=== PATIENT | female | born 1985 | race Caucasian/White ===

== ENCOUNTER 2017-02-18 12:32 | Emergency (ER) | payer SELFPAY ==
[2017-02-18] MEDS ORDERED: Ketorolac Tromethamine 30 MG/ML VIAL ONE (12:59)
== END 2017-02-18 13:29 | disposition home or self-care (01) ==
LOC: ERS 12:32
DX: S02.5XXA Fracture of tooth (traumatic), initial encounter for closed fracture (principal); K50.90 Crohn's disease, unspecified, without complications; F17.210 Nicotine dependence, cigarettes, uncomplicated; X50.1XXA Overexertion from prolonged static or awkward postures, initial encounter
CPT/HCPCS: 96372; J1885

== ENCOUNTER 2017-02-26 20:46 | Emergency (ER) | payer SELFPAY ==
[2017-02-26 21:38] LABS: Bilirubin Negative (Negative); Blood, Urine Negative (Negative); Glucose, Urine (Dipstick) Negative (Negative); Ketone, Urine Negative (Negative); Nitrite Negative (Negative); Protein, Urine (Dipstick) Negative (Neg-Trace); Urobilinogen 0.2 mg/dL (0.2-1.0)
[2017-02-26] MEDS ORDERED: Acetaminophen 500 MG TAB ONE (21:50)
[2017-02-26] MEDS ORDERED: Ketorolac Tromethamine 30 MG/ML VIAL ONE (21:50)
[2017-02-26 22:26] LABS: #Basophils 0.1 thou/uL (0.0-0.2); #Eosinphils 0.6 thou/uL (0.0-0.7); #Lymphocytes 4.2 thou/uL (1.20-3.40); #Monocytes 0.7 thou/uL (0.11-0.59); #Neutrophils 6.3 thou/uL (1.40-6.50); %Basophils 0.7 % (0.0-1.0); %Eosinophils 5.5 % (0.0-10.0); %Lymphocytes 34.9 % (21.0-51.0); %Monocytes 6.3 % (0.0-10.0); Hematocrit 39.2 % (36.0-47.0); Mean Platelet Volume 7.4 fL (7.4-10.4); White Blood Cell (WBC) Count 11.9 thou/uL (4.8-10.8)
[2017-02-26 22:41] LABS: ALT (SGPT) 47 U/L (8-55); AST (SGOT) 24 U/L (5-34); Alkaline Phosphatase 108 U/L (40-150); Anion Gap 10 mmol/L (10-20); BUN (Urea Nitrogen) 13 mg/dL (7.0-18.7); Bilirubin, Total 1.2 mg/dL (0.2-1.2); Calc. Creatinine Clearance 0 mL/min (70-130); Calcium 9.4 mg/dL (7.8-10.44); Carbon Dioxide 27 mmol/L (22-29); Chloride 106 mmol/L (98-107); Estimated GFR-MDRD 90; Globulin 2.9 g/dL (2.4-3.5); Lipase 20 U/L (8-78); Protein, Total 7.1 g/dL (6.0-8.3)
[2017-02-26] MEDS ORDERED: HYDROmorphone 0.5 MG/0.5 ML SYRINGE ONE (23:08)
--- NOTE | 2017-02-26 23:22 | CT ---
CT OF THE ABDOMEN AND PELVIS WITH IV CONTRAST 02/26/17 INDICATION: Left lower quadrant abdominal pain. FINDINGS: The lung bases are clear. No focal hepatic lesion is evident. The gallbladder is surgically absent. The pancreas, adrenal glands, and kidneys are normal appearing. The spleen is upper limits of normal in size measuring 12.9 cm in its greatest AP dimension. No free fluid or enlarged lymph nodes are evident. There is normal appendix in the right lower quadra nt. There are a few scattered diverticula involving the colon without evidence of active diverticulit is. The uterus is not demonstrated and may be surgically absent. No acute osseous abnormalities are evident. IMPRESSION: No CT explanation for the patient's abdominal pain. POS: [facility]
== END 2017-02-26 23:25 | disposition home or self-care (01) ==
LOC: ERS 20:46
DX: R10.32 Left lower quadrant pain (principal); R20.8 Other disturbances of skin sensation; F17.210 Nicotine dependence, cigarettes, uncomplicated; K50.90 Crohn's disease, unspecified, without complications
CPT/HCPCS: 74177; 80053; 81003; 83690; 85025; 96374; 96375; 99406; J1170; J1885

== ENCOUNTER 2017-04-08 11:31 | Emergency (ER) | payer SELFPAY ==
[2017-04-08] MEDS ORDERED: Ondansetron HCl/PF 4 MG/2 ML Vial ONE (12:01)
[2017-04-08 12:06] LABS: #Eosinphils 0.1 thou/uL (0.0-0.7); #Lymphocytes 1.9 thou/uL (1.20-3.40); #Monocytes 0.6 thou/uL (0.11-0.59); #Neutrophils 11.5 thou/uL (1.40-6.50); %Basophils 0.3 % (0.0-1.0); %Eosinophils 0.6 % (0.0-10.0); %Lymphocytes 13.6 % (21.0-51.0); %Neutrophils 81.5 % (42.0-75.0); Hemoglobin 16.2 g/dL (12.0-16.0); Mean Corpuscular HGB CONC 34.8 g/dL (32.0-36.0); Mean Corpuscular Hemoglobin 31.3 pg (27.0-31.0); Mean Platelet Volume 7.1 fL (7.4-10.4); Platelet Count 407 thou/uL (130-400); RBC Distribution Width 13.2 % (11.5-14.5); Red Blood Cell (RBC) Count 5.19 mill/uL (4.20-5.40); White Blood Cell (WBC) Count 14.2 thou/uL (4.8-10.8)
[2017-04-08 12:28] LABS: ALT (SGPT) 21 U/L (8-55); AST (SGOT) 18 U/L (5-34); Albumin 5.1 g/dL (3.5-5.0); Alkaline Phosphatase 91 U/L (40-150); Anion Gap 17 mmol/L (10-20); BUN (Urea Nitrogen) 12 mg/dL (7.0-18.7); Bilirubin, Total 1.9 mg/dL (0.2-1.2); Calc. Creatinine Clearance 0 mL/min (70-130); Calcium 10.1 mg/dL (7.8-10.44); Carbon Dioxide 21 mmol/L (22-29); Chloride 108 mmol/L (98-107); Estimated GFR-MDRD 87; Globulin 3.1 g/dL (2.4-3.5); Glucose 92 mg/dL (70-105); Potassium 4.2 mmol/L (3.5-5.1); Protein, Total 8.2 g/dL (6.0-8.3); Sodium 142 mmol/L (136-145)
[2017-04-08] MEDS ORDERED: Promethazine HCl 25 MG/ML VIAL ONE (14:03)
[2017-04-08] MEDS ORDERED: Promethazine HCl 12.5 MG in Sodium Chloride 0.9% 50 ML IVPB ONE (14:15)
[2017-04-08] MEDS ORDERED: Promethazine HCl 25 MG/ML VIAL SLOW IVP SCH (14:30)
[2017-04-08] MEDS ORDERED: Haloperidol Lactate 5 MG/ML VIAL ONE (15:30)
[2017-04-08 15:42] LABS: Acetaminophen Less than 6.0 mcg/mL (10.0-30.0); Alcohol 26 mg/dL (Less than 10); Salicylate Less than 8.0 mg/dL (15.0-30.0)
[2017-04-08 16:04] LABS: Bilirubin Negative (Negative); Blood, Urine Negative (Negative); Clarity CLEAR (Clear); Glucose, Urine (Dipstick) Negative (Negative); Leukocyte Negative (Negative); Nitrite Negative (Negative); Protein, Urine (Dipstick) Negative (Neg-Trace); Specific Gravity, Urine 1.021 (1.002-1.036); Urobilinogen 0.2 mg/dL (0.2-1.0); pH, Urine 5.5 (5.0-9.0)
[2017-04-08 16:17] LABS: Medtox Reader # READER 1
[2017-04-08 16:18] LABS: Amphetamine Not Detected (NotDetected); Barbiturates Screen Not Detected (NotDetected); Benzodiazepine Screen Detected (NotDetected); Cocaine Metabolite Screen Not Detected (NotDetected); Medtox Control Line Valid? VALID (VALID); Methadone Not Detected (NotDetected); Methamphetamine Not Detected (NotDetected); Opiate Screen Not Detected (NotDetected); Oxycodone Screen Not Detected (NotDetected); Phencyclidine (PCP) Not Detected (NotDetected); THC/Cannabinoid Screen Detected (NotDetected); Tricyclic Screen Not Detected (NotDetected)
[2017-04-08] MEDS ORDERED: Ketorolac Tromethamine 60 MG/2 ML VIAL ONE (16:56)
== END 2017-04-08 17:04 | disposition home or self-care (01) ==
LOC: ERS 11:31
DX: F12.929 Cannabis use, unspecified with intoxication, unspecified (principal); R11.10 Vomiting, unspecified; K50.90 Crohn's disease, unspecified, without complications; F17.210 Nicotine dependence, cigarettes, uncomplicated; Z85.41 Personal history of malignant neoplasm of cervix uteri; Z71.6 Tobacco abuse counseling
CPT/HCPCS: 51701; 80053; 80306; 80307; 81003; 85025; 96361; 96374; 96375; 99406; A4353; J1630; J1885; J2405; J2550; J7050

== ENCOUNTER 2018-01-19 03:40 | Inpatient (IN) | payer SELFPAY ==
[2018-01-19] MEDS ORDERED: Ondansetron PF 4 MG/2 ML Vial ONE ×2 (03:49→04:31)
[2018-01-19 04:02] LABS: #Basophils 0.1 thou/uL (0.0-0.2); #Eosinphils 0.5 thou/uL (0.0-0.7); #Lymphocytes 2.9 thou/uL (1.20-3.40); #Monocytes 0.9 thou/uL (0.11-0.59); %Basophils 0.9 % (0.0-1.0); %Eosinophils 3.3 % (0.0-10.0); %Lymphocytes 20.1 % (21.0-51.0); %Monocytes 6.3 % (0.0-10.0); %Neutrophils 69.4 % (42.0-75.0); Hemoglobin 15.1 g/dL (12.0-16.0); Mean Corpuscular HGB CONC 34.8 g/dL (32.0-36.0); Mean Corpuscular Volume 89.2 fL (78.0-98.0); Mean Platelet Volume 7.3 fL (7.4-10.4); Platelet Count 318 thou/uL (130-400); RBC Distribution Width 12.8 % (11.5-14.5); Red Blood Cell (RBC) Count 4.87 mill/uL (4.20-5.40); White Blood Cell (WBC) Count 14.4 thou/uL (4.8-10.8)
[2018-01-19 04:22] LABS: ALT (SGPT) 15 U/L (8-55); AST (SGOT) 20 U/L (5-34); Albumin 4.5 g/dL (3.5-5.0); Alkaline Phosphatase 68 U/L (40-150); Anion Gap 15 mmol/L (10-20); BUN (Urea Nitrogen) 11 mg/dL (7.0-18.7); Calc. Creatinine Clearance 0 mL/min (70-130); Calcium 9.7 mg/dL (7.8-10.44); Carbon Dioxide 23 mmol/L (22-29); Chloride 107 mmol/L (98-107); Estimated GFR-MDRD 83; Globulin 2.6 g/dL (2.4-3.5); Glucose 98 mg/dL (70-105); Lipase 37 U/L (8-78); Potassium 4.3 mmol/L (3.5-5.1); Protein, Total 7.1 g/dL (6.0-8.3); Sodium 141 mmol/L (136-145)
[2018-01-19] MEDS ORDERED: Ketorolac Tromethamine 30 MG/ML VIAL ONE (04:31)
[2018-01-19] MEDS ORDERED: Promethazine HCl 25 MG/ML VIAL ONE (05:23)
[2018-01-19 05:39] LABS: Bilirubin Negative (Negative); Blood, Urine Negative (Negative); Clarity CLEAR (Clear); Glucose, Urine (Dipstick) Negative (Negative); Leukocyte Negative (Negative); Nitrite Negative (Negative); Protein, Urine (Dipstick) Negative (Neg-Trace); Specific Gravity, Urine 1.025 (1.002-1.036); Urobilinogen 0.2 mg/dL (0.2-1.0); pH, Urine 5.5 (5.0-9.0)
[2018-01-19] MEDS ORDERED: metroNIDAZOLE 500 MG/100 ML BAG ONE (06:18)
--- NOTE | 2018-01-19 07:50 | CT ---
CT OF THE ABDOMEN AND PELVIS WITH IV CONTRAST: INDICATION: History of Crohn's disease and abdominal pain. COMPARISON: Prior exam dated 02/26/2017. FINDINGS: Lung bases are clear. The gallbladder is surgically absent. The spleen is upper limits of normal for size measuring 12.8 cm. There is a small subcentimeter cyst within the left mid kidney which is stable. No hydronephrosis is evident. The pancreas and adrenal glands are normal appearing. No free fluid or enlarged lymph nodes are evident. There is wall thickening with mucosal enhancement that has progressed from the prior exam involving t he distal ileum and terminal ileum. No drainable fluid collection is grossly evident. No definite b owel obstruction is noted. The bladder is decompressed. The rectum and perirectal soft tissues are unremarkable. The appendix is not definitely seen. No definite acute osseous abnormality is evident. IMPRESSION: 1. Wall thickening with mucosal enhancement involving the distal ileum and terminal ileum consistent with changes of inflammatory bowel disease. No definite drainable fluid collection is grossly evide nt. 2. Nonvisualization of the appendix. 3. Left renal cyst. 4. Cholecystectomy. 5. The spleen is upper limits of normal for size measuring 12.8 cm. POS: [facility]
[2018-01-19 09:06] LABS: Lactic Acid 1.8 mmol/L (0.5-2.2)
[2018-01-19] MEDS ORDERED: Acetaminophen 325 MG TAB PO PRN (11:26)
[2018-01-19] MEDS: Nicotine 14 MG PATCH TD PRN (12:10)
[2018-01-19] MEDS: Ondansetron PF 4 MG/2 ML Vial IVP PRN ×2 (12:10→16:13)
[2018-01-19] MEDS: Sodium Chloride 0.9% 1,000 ML IV SCH ×2 (12:11→15:47)
[2018-01-19 12:44] VITALS: BMI 24.9
[2018-01-19] MEDS: metroNIDAZOLE 500 MG in Premix Bag 1 BAG IVPB SCH ×2 (13:45→22:55)
--- NOTE | 2018-01-19 18:28 | CON ---
DATE OF CONSULTATION: 01/19/2018 REFERRING DOCTOR: Paz Pillai M.D. REASON FOR CONSULTATION: Abdominal pain, nausea, vomiting, and history of Crohn's disease from [facility]. HISTORY OF PRESENT ILLNESS: Karolina Fernando is a very pleasant 32-year-old female with abdom inal pain, nausea, vomiting and diarrhea over the last several days. The patient has longstanding hi story of Crohn's disease since 2004. This was diagnosed when she was lived in [place]. Apparently, she was on Solu-Medrol, Flagyl, and some antibiotics for a while and she got better. She has never t aken medicine on a regular basis. Her last colonoscopy was in 2009 when she was living in [place] this was done just before hysterectomy. The patient has not taken medicines over the last several years. She also has not seen a marketing operations coordinator for many years. The patient states that she has i ntermittent abdominal pain, nausea, and vomiting, and history of pain medicines to control it. She a lso uses marijuana to get some relief for abdominal pain. The patient was seen here, I believe in [id number] with abdominal pain. At that time, the pain was over the left lower quadrant. An abdomi nal CAT scan done revealed no colitis at that time. The patient on the CAT scan done today which rev eals inflammatory changes in the ileum and the ileocecal area. The colon appeared very healthy. Her abdominal pain has been going on for the last several weeks off and on, but the pain got intense for the last 3 days. The pain is actually burning over the lower abdomen. She has had nausea and vomit ing, and also has had diarrhea. She says she has a stool today. She has had no major bleeding, but . She also gives history of fever and chills off and on. There is no history of weight loss. She has no other relevant history. ALLERGIES: ZOSYN. SOCIAL HISTORY: The patient is a smoker. Smokes one half pack of cigarettes per day. Does not drin k alcohol. She smokes marijuana off and on. MEDICAL ILLNESSES: 1. Longstanding Crohn's disease, not on any medication. 2. History of cervical cancer, status post hysterectomy. 3. Cholecystectomy. MEDICATIONS AT HOME: None. REVIEW OF SYSTEMS: Constitutional: History of fever and chills off and on. No history of weight lo ss. Respiratory: No history of chronic cough, hemoptysis, dyspnea. Cardiovascular: No chest pain, no palpitation, no dyspnea on exertion, orthopnea or PND. Gastrointestinal: As in history of prese nt illness. Genitourinary: No dysuria or hematuria. Musculoskeletal, Endocrine, and Hematologic: Unremarkable. PHYSICAL EXAMINATION: GENERAL: Appears comfortable, in no distress. VITAL SIGNS: Temperature 97.7 degrees Fahrenheit, pulse 67, blood pressure 102/53. HEENT: Conjunctivae clear. NECK: Supple. No adenitis or thyromegaly noted. CARDIOVASCULAR: First and second heart sounds normal. LUNGS: Clear to auscultation. ABDOMEN: Soft. Abdomen is nondistended. Although she comes in with abdominal pain which is severe, the exam is actually very benign. Abdomen shows no rebound or guarding. EXTREMITIES: Reveal no edema. LABORATORY DATA: CBC shows WBC 14,400, hemoglobin 15.1, hematocrit 43.4, MCV 18.2, platelet count 21 8,000, polymorphs 69, lymphocytes 20, monocytes 6. Chemistry panel: Sodium 141, potassium 4.3, chlo ride 107, bicarbonate 23, BUN is 11, creatinine 0.80, glucose 98, calcium 9.7, bilirubin 2, AST 20, A LT 15, alkaline phosphatase 68, albumin 4.5, lipase 37. An abdominal CAT scan done shows ileoc ecal area and ileum. CLINICAL IMPRESSION: 1. A 32-year-old female with longstanding Crohn's disease, not on medications. She has not taken me dicine for many years. She comes in with abdominal cramping, nausea, vomiting, diarrhea. CAT scan d oes show some inflammatory changes in the colon. Based on the CAT scan findings of the symptoms, pos sible that she could have Crohn's disease versus nonspecific infectious ileitis. We have no accessor y of all medical records. She has never taken medicines for many years. 2. Status post cholecystectomy. 3. Status post hysterectomy. RECOMMENDATIONS: 1. Stool for ova and parasites, culture, C. difficile. 2. Continue antibiotics. 3. Start patient on Solu-Medrol 20 mg q.8 hours. At some point in time, may have to consider colono scopy.
[2018-01-19] MEDS: Famotidine 20 MG TAB PO SCH (20:20)
--- NOTE | 2018-01-19 21:41 | HP ---
PRIMARY CARE PHYSICIAN: None. The patient is planning to see [facility]. CHIEF COMPLAINT: Abdominal discomfort. HISTORY OF PRESENT ILLNESS: Patient is a 32-year-old female with Crohn's disease who presented to the emergency room by EMS with abdominal discomfort that woke her up from sleep. The pain was periumbilical, 10/10, without any aggravating or relieving factor. She had some nausea along with low grade fever and chills. She denies any melena, hematochezia, or hematemesis. She denies any recent GI followup for Crohn's disease. In the emergency room, initial vital signs showed temperature 98.9, respirations 20, pulse 63, blood pressure of 122/82 with O2 saturation of 99% on room air. She received morphine, ciprofloxacin, Flagyl, IV fluid and Toradol in the emergency room. She denies any recent antibiotic use. PAST MEDICAL HISTORY: 1. Crohn's disease. 2. History of cervical cancer, status post hysterectomy. PAST SURGICAL HISTORY: Cholecystectomy. ALLERGIES: The patient is allergic to ZOSYN. CURRENT HOME MEDICATIONS: Reviewed with the patient and none. SOCIAL HISTORY: Patient currently lives at home. Denies any alcohol use. Occasionally smokes cigarettes. Due to her abdominal discomfort, she uses cannabis occasionally. FAMILY HISTORY: Positive for inflammatory bowel disease. REVIEW OF SYSTEMS: The following complete review of systems was negative, unless otherwise mentioned in the HPI or below: Constitutional: Weight loss or gain, ability to conduct usual activities. Skin: Rash, itching. Eyes: Double vision, pain. ENT/Mouth: Nose bleeding, neck stiffness, pain, tenderness. Cardiovascular: Palpitations, dyspnea on exertion, orthopnea. Respiratory: Shortness of breath, wheezing, cough, hemoptysis, fever or night sweats. Gastrointestinal: Poor appetite, abdominal pain, heartburn, nausea, vomiting, constipation, or diarrhea. Genitourinary: Urgency, frequency, dysuria, nocturia. Musculoskeletal: Pain, swelling. Neurologic/Psychiatric: Anxiety, depression. Allergy/Immunologic: Skin rash, bleeding tendency. PHYSICAL EXAMINATION: VITAL SIGNS: As discussed above. GENERAL: A 32-year-old female in moderate distress due to abdominal discomfort. HEENT: Atraumatic, normocephalic. Sclerae are anicteric. Moist mucous membrane, no oral lesion. NECK: Supple, no JVD, no carotid bruit. LUNGS: Clear to auscultation bilaterally, no wheezing, rales or rhonchi. HEART: S1, S2 present. Regular rate and rhythm. No murmur, rubs, or gallops. ABDOMEN: Soft, nondistended. There is periumbilical tenderness, no rebound or guarding. Bowel sounds present. EXTREMITIES: No edema or calf tenderness. NEUROLOGIC: Grossly nonfocal, moves all four extremities. PSYCHIATRY: Alert, awake, oriented x3. SKIN: Warm and dry. LYMPH NODES: No palpable lymph nodes in the neck. PERIPHERAL VASCULAR: Radial pulses palpable bilaterally. MUSCULOSKELETAL: No joint swelling or tenderness. LABORATORY DATA AND IMAGING DATA: 1. WBC 14.4 with hemoglobin 15.1, hematocrit 43.4. Lactic acid 2.4, repeat lactic acid 1.8, total bilirubin 2.0. 2. Sodium, potassium, chloride and bicarbonate in normal range. BUN 11, creatinine 0.8. 3. CT scan of the abdomen and pelvis showed some inflammatory changes in the distal ileum. IMPRESSION: 1. Abdominal pain with abnormal CT scan. She meets SIRS criteria. Possibilities include inflammatory bowel disease flare versus acute gastroenteritis. 2. Dehydration with lactic acidosis. 3. Chronic kidney disease stage 2. 4. Tobacco dependence. 5. Cannabis abuse. 6. Abnormal LFTs probably secondary to #1. PLAN: The patient will be monitored on the medical floor. Stool workup will be sent. We will continue ciprofloxacin and Flagyl. We will consult Gastroenterology. We will discuss with Gastroenterology if steroids can be started. We will add H2 blockers. Plan of care was discussed with the patient in detail. She stated understanding. MTDD
[2018-01-19] MEDS: Ondansetron ODT 4 MG TAB PO PRN (22:55)
[2018-01-20] MEDS: Ondansetron PF 4 MG/2 ML Vial IVP PRN ×3 (04:58→20:12)
[2018-01-20 06:02] LABS: #Eosinphils 0.1 thou/uL (0.0-0.7); #Lymphocytes 1.1 thou/uL (1.20-3.40); #Monocytes 0.1 thou/uL (0.11-0.59); #Neutrophils 6.5 thou/uL (1.40-6.50); %Basophils 0.6 % (0.0-1.0); %Eosinophils 1.1 % (0.0-10.0); %Lymphocytes 14.2 % (21.0-51.0); %Monocytes 1.6 % (0.0-10.0); %Neutrophils 82.6 % (42.0-75.0); Hemoglobin 13.6 g/dL (12.0-16.0); Mean Corpuscular HGB CONC 34.5 g/dL (32.0-36.0); Mean Corpuscular Hemoglobin 31.4 pg (27.0-31.0); Mean Platelet Volume 7.7 fL (7.4-10.4); Platelet Count 262 thou/uL (130-400); RBC Distribution Width 12.7 % (11.5-14.5); Red Blood Cell (RBC) Count 4.32 mill/uL (4.20-5.40); White Blood Cell (WBC) Count 7.9 thou/uL (4.8-10.8)
[2018-01-20 06:24] LABS: ALT (SGPT) 16 U/L (8-55); AST (SGOT) 18 U/L (5-34); Albumin 4.2 g/dL (3.5-5.0); Alkaline Phosphatase 67 U/L (40-150); Anion Gap 10 mmol/L (10-20); BUN (Urea Nitrogen) 6 mg/dL (7.0-18.7); Bilirubin, Total 1.6 mg/dL (0.2-1.2); Calc. Creatinine Clearance 116 mL/min (70-130); Carbon Dioxide 22 mmol/L (22-29); Chloride 113 mmol/L (98-107); Estimated GFR-MDRD 88; Globulin 2.2 g/dL (2.4-3.5); Glucose 117 mg/dL (70-105); Protein, Total 6.4 g/dL (6.0-8.3); Sodium 141 mmol/L (136-145)
[2018-01-20] MEDS: metroNIDAZOLE 500 MG in Premix Bag 1 BAG IVPB SCH ×3 (06:39→22:22)
[2018-01-20 07:32] LABS: Magnesium 1.9 mg/dL (1.6-2.6); Phosphorus 2.3 mg/dL (2.3-4.7)
[2018-01-20] MEDS: Famotidine 20 MG TAB PO SCH ×2 (09:02→20:17)
[2018-01-20] MEDS: Saccharomyces boulardii 250 MG CAP PO SCH (09:02)
[2018-01-20] MEDS: Morphine 4 MG/ML VIAL SLOW IVP PRN ×4 (09:03→20:22)
[2018-01-20] MEDS: Sodium Chloride 0.9% 1,000 ML IV SCH (09:03)
--- NOTE | 2018-01-20 14:01 | PDOC.PN ---
- Subjective Encounter Start Date: 01/20/18 Encounter Start Time: 10:30 Patient seen and examined for IBD flare. Abd pain improving. No N/V. No overnight events - Objective Resuscitation Status: Resuscitation Status FULL:Full Resuscitation MAR Reviewed: Yes Vital Signs & Weight: Vital Signs (12 hours) Temp Pulse Resp BP Pulse Ox 01/20/18 11:48 97.9 F 56 L 18 125/79 97 01/20/18 07:33 98.0 F 50 L 16 117/76 96 01/20/18 05:39 97.3 F L 61 20 121/82 98 Weight Admit Weight 154 lb 5.177 oz Weight 154 lb 5.177 oz I&O: 01/19/18 01/20/18 01/21/18 06:59 06:59 06:59 Intake Total 2150 Balance 2150 Result Diagrams: 01/20/18 05:22 01/20/18 05:22 Phys Exam - Physical Examination Constitutional: NAD Respiratory: no wheezing, no rhonchi Cardiovascular: RRR, no rub Gastrointestinal: soft, positive bowel sounds mild gen tenderness, no rebound Musculoskeletal: no edema Neurological: moves all 4 limbs Dx/Plan - Plan DVT proph w/SCDs 1. Abdominal pain/SIRS due to Crohn's exacerbation Cont IV Cipro/Flagyl/Steroids Cont Clear liqd diet 2. Dehydration with lactic acidosis. Change IVF to 1/2 NS 3. Chronic kidney disease stage 2. 4. Tobacco dependence. Counselled 5. Cannabis abuse. Counselled 6. Abnormal LFTs - improving Microbiology 01/19/18 16:23 Stool Escherichia coli 0157 Culture - Final 01/19/18 16:23 Stool Campylobacter Antigen Assay - Final 01/19/18 16:23 Stool Shiga Toxin Test - Final 01/19/18 12:37 Stool Stool Lactoferrin - Final 01/19/18 12:37 Stool Shiga Toxin Test - Final 01/19/18 12:37 Stool C. difficile GDH Antigen & Toxins - Final 01/19/18 16:23 Stool Stool Culture - Preliminary 01/19/18 12:37 Stool Stool Culture - Preliminary Laboratory Tests 01/19/18 01/19/18 01/19/18 03:50 03:50 08:33 Lactic Acid 2.4 H 1.8 Total Bilirubin 2.0 H 01/20/18 05:22 Lactic Acid Total Bilirubin 1.6 H Review of Systems - Review of Systems Respiratory: negative: Cough, Dry, Shortness of Breath, Hemoptysis, SOB with Excertion, Pleuritic Pain, Sputum, Wheezing Cardiovascular: negative: chest pain, palpitations, orthopnea, paroxysmal nocturnal dyspnea, edema, light headedness, other - Medications/Allergies Allergies/Adverse Reactions: Allergies Allergy/AdvReac Type Severity Reaction Status Date / Time piperacillin [From Zosyn] Allergy Verified 01/19/18 10:05 tazobactam [From Zosyn] Allergy Verified 01/19/18 10:05 Medications: Current Medications Acetaminophen (Tylenol) 650 mg PO Q4H PRN PRN Reason: Headache/Fever/Mild Pain (1-3) Last Admin: 01/19/18 20:20 Dose: 650 mg Calcium Carbonate (Tums) 1,000 mg PO Q4H PRN PRN Reason: Heartburn or Indigestion Famotidine (Pepcid) 20 mg PO BID [facility] Last Admin: 01/20/18 09:02 Dose: 20 mg Sodium Chloride (Normal Saline 0.9%) 1,000 mls @ 125 mls/hr IV .Q8H [facility] Last Admin: 01/20/18 09:03 Dose: 1,000 mls Metronidazole 500 mg/ Device 100 mls @ 100 mls/hr IVPB Q8HR [facility] Last Admin: 01/20/18 13:31 Dose: 100 mls Ciprofloxacin/Dextrose 400 mg/ (Device) 200 mls @ 200 mls/hr IVPB 0800,2000 [facility] Last Admin: 01/20/18 09:02 Dose: 200 mls Methylprednisolone Sodium Succinate (Solu-Medrol) 20 mg IVP Q8HR [facility] Last Admin: 01/20/18 13:30 Dose: 20 mg Morphine Sulfate (Morphine) 4 mg SLOW IVP Q3H PRN PRN Reason: Moderate Pain (4-6) Last Admin: 01/20/18 13:31 Dose: 4 mg Nicotine (Nicoderm Patch) 14 mg TD Q24HR PRN PRN Reason: Smoking craving Last Admin: 01/19/18 12:10 Dose: 14 mg Ondansetron HCl (Zofran Odt) 4 mg PO Q6H PRN PRN Reason: Nausea/Vomiting Last Admin: 01/19/18 22:55 Dose: 4 mg Ondansetron HCl (Zofran) 4 mg IVP Q6H PRN PRN Reason: Nausea/Vomiting Last Admin: 01/20/18 12:02 Dose: 4 mg Saccharomyces Boulardii (Florastor) 250 mg PO DAILY [facility] Last Admin: 01/20/18 09:02 Dose: 250 mg Sodium Chloride (Flush - Normal Saline) 10 ml IVF Q12HR [facility] Last Admin: 01/20/18 09:03 Dose: 10 ml Sodium Chloride (Flush - Normal Saline) 10 ml IVF PRN PRN PRN Reason: Saline Flush
[2018-01-20] MEDS: Sodium Chloride 0.45% 1,000 ML IV SCH (15:37)
--- NOTE | 2018-01-20 15:39 | PRG ---
DATE OF SERVICE: 01/20/2018 SUBJECTIVE: This is a 32-year-old female with history of Crohn's disease since 2004, hospi talized because of abdominal pain, nausea, vomiting, and diarrhea. The abdominal CAT scan done did s how some ileitis. The patient had CAT scan of the abdomen done a year ago which was normal. The pat phu is not taking medicines for Crohn's disease for many years. She says she has had some flareup o ff and on but she had not seen a GI doctor and not taking any medication. She usually smoking marijuana, which makes her feel better. The patient is actually feeling better today. She has no na usea or vomiting. She has had no stool since 3:00 a.m. today. Abdominal pain is better than yesterd ay. PHYSICAL EXAMINATION: GENERAL: Appears comfortable. Afebrile. VITALS: Pulse is 56, blood pressure 124/79. CARDIOVASCULAR: First and second heart sounds normal. LUNGS: Clear to auscultation. ABDOMEN: Soft. Abdomen is nondistended. Abdomen is mildly tender over the lower abdomen. There is no rebound or guarding. LABORATORY DATA: The stool studies done showed negative Shiga toxin, negative Campylobacter, C. diff icile is negative. The stool for ova and parasites came back negative. RECOMMENDATIONS: 1. Continue IV steroids and antibiotics. 2. Advance diet as tolerated.
[2018-01-20] MEDS: Nicotine 14 MG PATCH TD PRN (17:44)
[2018-01-21] MEDS: Morphine 4 MG/ML VIAL SLOW IVP PRN ×4 (01:11→23:15)
[2018-01-21] MEDS: Ondansetron PF 4 MG/2 ML Vial IVP PRN ×2 (01:11→21:37)
[2018-01-21] MEDS ORDERED: Morphine 2 MG/ML SYRINGE SLOW IVP SCH (03:15)
[2018-01-21] MEDS: Sodium Chloride 0.45% 1,000 ML IV SCH ×3 (05:09→20:40)
[2018-01-21] MEDS: metroNIDAZOLE 500 MG in Premix Bag 1 BAG IVPB SCH ×3 (05:27→22:35)
[2018-01-21] MEDS: Famotidine 20 MG TAB PO SCH ×2 (07:56→20:05)
[2018-01-21] MEDS: Saccharomyces boulardii 250 MG CAP PO SCH (07:56)
[2018-01-21] MEDS: Nicotine 14 MG PATCH TD PRN (15:12)
[2018-01-21] MEDS: Morphine 2 MG/ML SYRINGE SLOW IVP PRN ×2 (15:13→19:15)
--- NOTE | 2018-01-21 18:42 | PDOC.PN ---
- Subjective Encounter Start Date: 01/21/18 Encounter Start Time: 14:00 Patient seen and examined for IBD flare. Intermittent Abd pain. No N/V. Tolerating clear liqd diet. No overnight events - Objective Resuscitation Status: Resuscitation Status FULL:Full Resuscitation MAR Reviewed: Yes Vital Signs & Weight: Vital Signs (12 hours) Temp Pulse Resp BP Pulse Ox 01/21/18 15:58 97.6 F 58 L 18 124/80 99 01/21/18 11:54 98.2 F 75 18 145/80 H 99 01/21/18 07:52 97.5 F L 66 16 120/68 97 Weight Admit Weight 154 lb 5.177 oz Weight 154 lb 5.177 oz I&O: 01/20/18 01/21/18 01/22/18 06:59 06:59 06:59 Intake Total 2150 2160 1400 Output Total 750 Balance 2150 1410 1400 Result Diagrams: 01/20/18 05:22 01/20/18 05:22 Phys Exam - Physical Examination Constitutional: NAD Respiratory: no wheezing, no rhonchi Cardiovascular: RRR, no rub Gastrointestinal: soft, positive bowel sounds mild gen tenderness/ no guarding/rigidity Musculoskeletal: no edema Neurological: moves all 4 limbs Dx/Plan - Plan 1. Abdominal pain/SIRS due to Crohn's exacerbation Cont IV Cipro/Flagyl/Steroids Advance diet AM labs 2. Dehydration with lactic acidosis. Cont 1/2 NS 3. Chronic kidney disease stage 2. 4. Tobacco dependence. Counselled 5. Cannabis abuse. Counselled 6. Abnormal LFTs - improving Review of Systems - Review of Systems Respiratory: negative: Cough, Dry, Shortness of Breath, Hemoptysis, SOB with Excertion, Pleuritic Pain, Sputum, Wheezing Cardiovascular: negative: chest pain, palpitations, orthopnea, paroxysmal nocturnal dyspnea, edema, light headedness, other - Medications/Allergies Allergies/Adverse Reactions: Allergies Allergy/AdvReac Type Severity Reaction Status Date / Time piperacillin [From Zosyn] Allergy Verified 01/19/18 10:05 tazobactam [From Zosyn] Allergy Verified 01/19/18 10:05 Medications: Current Medications Acetaminophen (Tylenol) 650 mg PO Q4H PRN PRN Reason: Headache/Fever/Mild Pain (1-3) Last Admin: 01/19/18 20:20 Dose: 650 mg Calcium Carbonate (Tums) 1,000 mg PO Q4H PRN PRN Reason: Heartburn or Indigestion Famotidine (Pepcid) 20 mg PO BID [facility] Last Admin: 01/21/18 07:56 Dose: 20 mg Metronidazole 500 mg/ Device 100 mls @ 100 mls/hr IVPB Q8HR [facility] Last Admin: 01/21/18 15:12 Dose: 100 mls Ciprofloxacin/Dextrose 400 mg/ (Device) 200 mls @ 200 mls/hr IVPB 0800,2000 [facility] Last Admin: 01/21/18 07:54 Dose: 200 mls Sodium Chloride (1/2 Normal Saline) 1,000 mls @ 75 mls/hr IV .[id number] [facility] Last Admin: 01/21/18 17:22 Dose: 1,000 mls Methylprednisolone Sodium Succinate (Solu-Medrol) 20 mg IVP Q8HR [facility] Last Admin: 01/21/18 15:12 Dose: 20 mg Morphine Sulfate (Morphine) 4 mg SLOW IVP Q3H PRN PRN Reason: Moderate Pain (4-6) Last Admin: 01/21/18 11:13 Dose: 4 mg Morphine Sulfate (Morphine) 2 mg SLOW IVP Q4H PRN PRN Reason: Pain Stop: 01/23/18 08:54 Last Admin: 01/21/18 15:13 Dose: 2 mg Nicotine (Nicoderm Patch) 14 mg TD Q24HR PRN PRN Reason: Smoking craving Last Admin: 01/21/18 15:12 Dose: 14 mg Ondansetron HCl (Zofran Odt) 4 mg PO Q6H PRN PRN Reason: Nausea/Vomiting Last Admin: 01/19/18 22:55 Dose: 4 mg Ondansetron HCl (Zofran) 4 mg IVP Q6H PRN PRN Reason: Nausea/Vomiting Last Admin: 01/21/18 01:11 Dose: 4 mg Saccharomyces Boulardii (Florastor) 250 mg PO DAILY [facility] Last Admin: 01/21/18 07:56 Dose: 250 mg Sodium Chloride (Flush - Normal Saline) 10 ml IVF Q12HR [facility] Last Admin: 01/21/18 07:56 Dose: 10 ml Sodium Chloride (Flush - Normal Saline) 10 ml IVF PRN PRN PRN Reason: Saline Flush Last Admin: 10/26/18 03:24 Dose: 10 ml
[2018-01-21] MEDS: Zolpidem Tartrate 5 MG TAB PO PRN ×2 (22:33→23:15)
[2018-01-22] MEDS: Morphine 4 MG/ML VIAL SLOW IVP PRN ×3 (03:03→09:23)
[2018-01-22] MEDS: Sodium Chloride 0.45% 1,000 ML IV SCH ×2 (03:12→13:51)
[2018-01-22 06:00] LABS: #Lymphocytes 1.3 thou/uL (1.20-3.40); #Monocytes 0.5 thou/uL (0.11-0.59); %Basophils 0.1 % (0.0-1.0); %Eosinophils 0.1 % (0.0-10.0); %Lymphocytes 10.4 % (21.0-51.0); %Monocytes 3.6 % (0.0-10.0); %Neutrophils 85.8 % (42.0-75.0); Hemoglobin 13.6 g/dL (12.0-16.0); Mean Corpuscular HGB CONC 35.3 g/dL (32.0-36.0); Mean Corpuscular Hemoglobin 32.2 pg (27.0-31.0); Mean Corpuscular Volume 91.2 fL (78.0-98.0); Mean Platelet Volume 7.8 fL (7.4-10.4); Platelet Count 290 thou/uL (130-400); RBC Distribution Width 12.7 % (11.5-14.5); Red Blood Cell (RBC) Count 4.21 mill/uL (4.20-5.40); White Blood Cell (WBC) Count 12.9 thou/uL (4.8-10.8)
[2018-01-22] MEDS: metroNIDAZOLE 500 MG in Premix Bag 1 BAG IVPB SCH ×3 (06:11→21:25)
[2018-01-22 06:12] LABS: ALT (SGPT) 14 U/L (8-55); AST (SGOT) 12 U/L (5-34); Albumin 4.2 g/dL (3.5-5.0); Alkaline Phosphatase 62 U/L (40-150); Anion Gap 10 mmol/L (10-20); BUN (Urea Nitrogen) 10 mg/dL (7.0-18.7); Bilirubin, Total 1.3 mg/dL (0.2-1.2); Calc. Creatinine Clearance 121 mL/min (70-130); Calcium 9.3 mg/dL (7.8-10.44); Carbon Dioxide 26 mmol/L (22-29); Chloride 107 mmol/L (98-107); Estimated GFR-MDRD Greater than 90; Globulin 2.2 g/dL (2.4-3.5); Glucose 109 mg/dL (70-105); Protein, Total 6.4 g/dL (6.0-8.3); Sodium 139 mmol/L (136-145)
[2018-01-22] MEDS: Ondansetron PF 4 MG/2 ML Vial IVP PRN ×2 (06:12→20:06)
[2018-01-22] MEDS: Famotidine 20 MG TAB PO SCH ×2 (09:11→20:11)
[2018-01-22] MEDS: Saccharomyces boulardii 250 MG CAP PO SCH (09:11)
[2018-01-22] MEDS ORDERED: Morphine 4 MG/ML VIAL SLOW IVP PRN (10:19)
[2018-01-22] MEDS: Acetaminophen/Codeine 30-300mg Tablet PO PRN ×3 (12:02→21:19)
--- NOTE | 2018-01-22 13:25 | PRG ---
DATE OF SERVICE: 01/22/2018 SUBJECTIVE: The patient is not eating well because it causes her pain. She is having bowel movement s. She has had no nausea, vomiting. OBJECTIVE: VITAL SIGNS: Temperature 97.7, pulse 67, respiratory rate 14, blood pressure 120/73. HEENT: Unremarkable. NECK: Supple. CHEST: Clear. CARDIOVASCULAR: Regular rate and rhythm. ABDOMEN: Soft and tender in the right lower quadrant without rebound or guarding. LABORATORY DATA: Shows a white blood cell count 12.9, hemoglobin 13.6, hematocrit 38.4. Chemistries showed total bilirubin of 1.3, glucose 109. ASSESSMENT: Crohn's ileitis. RECOMMENDATIONS: 1. Would discontinue IV morphine for pain and try to use oral medication. Increase Solu-Medrol dose from 20 q.8-q.6. 2. Continue metronidazole and Cipro.
--- NOTE | 2018-01-22 15:40 | PDOC.PN ---
- Subjective Encounter Start Date: 01/22/18 Encounter Start Time: 11:30 Patient seen and examined for IBD flare. Abd pain same - No N/V. Unable to tolerate PO. No overnight events - Objective Resuscitation Status: Resuscitation Status FULL:Full Resuscitation MAR Reviewed: Yes Vital Signs & Weight: Vital Signs (12 hours) Temp Pulse Resp BP Pulse Ox 01/22/18 11:15 98.2 F 60 16 111/65 97 01/22/18 08:00 97.7 F 67 14 120/73 96 01/22/18 03:59 97.7 F 43 L 18 111/73 99 Weight Admit Weight 154 lb 5.177 oz Weight 154 lb 5.177 oz I&O: 01/21/18 01/22/18 01/23/18 06:59 06:59 06:59 Intake Total 2160 2980 Output Total 750 Balance 1410 2980 Result Diagrams: 01/22/18 05:24 01/22/18 05:24 Phys Exam - Physical Examination Constitutional: NAD Respiratory: no wheezing, no rhonchi Cardiovascular: RRR, no rub Gastrointestinal: soft, positive bowel sounds gen tenderness/no rebound/guarding Dx/Plan - Plan DVT proph w/SCDs 1. Abdominal pain/SIRS due to Crohn's exacerbation Cont IV Cipro/Flagyl/Steroids Pain control Advance diet AM labs 2. Dehydration with lactic acidosis. Cont IVF 3. Chronic kidney disease stage 2. 4. Tobacco dependence. Counselled 5. Cannabis abuse. Counselled 6. Abnormal LFTs - improving Laboratory Tests 01/19/18 01/19/18 01/19/18 03:50 03:50 08:33 WBC Lactic Acid 2.4 H 1.8 Total Bilirubin 2.0 H 01/20/18 01/22/18 01/22/18 05:22 05:24 05:24 WBC 12.9 H Lactic Acid Total Bilirubin 1.6 H 1.3 H Review of Systems - Review of Systems Respiratory: negative: Cough, Dry, Shortness of Breath, Hemoptysis, SOB with Excertion, Pleuritic Pain, Sputum, Wheezing Cardiovascular: negative: chest pain, palpitations, orthopnea, paroxysmal nocturnal dyspnea, edema, light headedness, other - Medications/Allergies Allergies/Adverse Reactions: Allergies Allergy/AdvReac Type Severity Reaction Status Date / Time piperacillin [From Zosyn] Allergy Verified 01/19/18 10:05 tazobactam [From Zosyn] Allergy Verified 01/19/18 10:05 Medications: Current Medications Acetaminophen (Tylenol) 650 mg PO Q4H PRN PRN Reason: Headache/Fever/Mild Pain (1-3) Last Admin: 01/19/18 20:20 Dose: 650 mg Acetaminophen/Codeine Phosphate (Tylenol #3) 1 tab PO Q4H PRN PRN Reason: Moderate Pain (4-6) Last Admin: 01/22/18 12:02 Dose: 1 tab Calcium Carbonate (Tums) 1,000 mg PO Q4H PRN PRN Reason: Heartburn or Indigestion Famotidine (Pepcid) 20 mg PO BID [facility] Last Admin: 01/22/18 09:11 Dose: 20 mg Metronidazole 500 mg/ Device 100 mls @ 100 mls/hr IVPB Q8HR [facility] Last Admin: 01/22/18 13:51 Dose: 100 mls Ciprofloxacin/Dextrose 400 mg/ (Device) 200 mls @ 200 mls/hr IVPB 0800,2000 [facility] Last Admin: 01/22/18 09:10 Dose: 200 mls Sodium Chloride (1/2 Normal Saline) 1,000 mls @ 50 mls/hr IV .Q20H [facility] Last Admin: 01/22/18 13:51 Dose: Not Given Mesalamine (Pentasa) 1,000 mg PO QID [facility] Last Admin: 01/22/18 13:50 Dose: 1,000 mg Methylprednisolone Sodium Succinate (Solu-Medrol) 40 mg IVP Q8HR [facility] Last Admin: 01/22/18 13:51 Dose: 40 mg Nicotine (Nicoderm Patch) 14 mg TD Q24HR PRN PRN Reason: Smoking craving Last Admin: 01/21/18 15:12 Dose: 14 mg Ondansetron HCl (Zofran Odt) 4 mg PO Q6H PRN PRN Reason: Nausea/Vomiting Last Admin: 01/19/18 22:55 Dose: 4 mg Ondansetron HCl (Zofran) 4 mg IVP Q6H PRN PRN Reason: Nausea/Vomiting Last Admin: 01/22/18 06:12 Dose: 4 mg Saccharomyces Boulardii (Florastor) 250 mg PO DAILY [facility] Last Admin: 01/22/18 09:11 Dose: 250 mg Sodium Chloride (Flush - Normal Saline) 10 ml IVF Q12HR [facility] Last Admin: 01/22/18 09:11 Dose: Not Given Sodium Chloride (Flush - Normal Saline) 10 ml IVF PRN PRN PRN Reason: Saline Flush Last Admin: 01/21/18 03:24 Dose: 10 ml Zolpidem Tartrate (Ambien) 5 mg PO HSPRN PRN PRN Reason: .INSOMNIA Last Admin: 01/21/18 23:15 Dose: 5 mg
[2018-01-22] MEDS: Zolpidem Tartrate 5 MG TAB PO PRN (20:12)
[2018-01-22] MEDS: Calcium Carbonate 500 MG ChewTAB PO PRN (21:21)
[2018-01-23] MEDS: Acetaminophen/Codeine 30-300mg Tablet PO PRN ×3 (02:21→19:09)
[2018-01-23] MEDS: Sodium Chloride 0.45% 1,000 ML IV SCH (02:22)
[2018-01-23] MEDS: Morphine 2 MG/ML SYRINGE SLOW IVP PRN ×3 (02:50→15:26)
[2018-01-23] MEDS: metroNIDAZOLE 500 MG in Premix Bag 1 BAG IVPB SCH ×3 (05:12→21:01)
[2018-01-23 06:06] LABS: #Lymphocytes 1.4 thou/uL (1.20-3.40); #Monocytes 0.5 thou/uL (0.11-0.59); #Neutrophils 13.7 thou/uL (1.40-6.50); %Eosinophils 0.3 % (0.0-10.0); %Lymphocytes 8.9 % (21.0-51.0); %Neutrophils 87.8 % (42.0-75.0); Hemoglobin 13.8 g/dL (12.0-16.0); Mean Corpuscular HGB CONC 34.8 g/dL (32.0-36.0); Mean Corpuscular Hemoglobin 31.7 pg (27.0-31.0); Mean Corpuscular Volume 91.1 fL (78.0-98.0); Mean Platelet Volume 7.9 fL (7.4-10.4); Platelet Count 306 thou/uL (130-400); RBC Distribution Width 12.7 % (11.5-14.5); Red Blood Cell (RBC) Count 4.35 mill/uL (4.20-5.40); White Blood Cell (WBC) Count 15.6 thou/uL (4.8-10.8)
[2018-01-23 06:31] LABS: Anion Gap 12 mmol/L (10-20); BUN (Urea Nitrogen) 14 mg/dL (7.0-18.7); Calc. Creatinine Clearance 115 mL/min (70-130); Calcium 9.4 mg/dL (7.8-10.44); Carbon Dioxide 25 mmol/L (22-29); Chloride 107 mmol/L (98-107); Estimated GFR-MDRD 86; Glucose 111 mg/dL (70-105); Potassium 3.8 mmol/L (3.5-5.1); Sodium 140 mmol/L (136-145)
[2018-01-23] MEDS: Famotidine 20 MG TAB PO SCH ×2 (09:30→20:18)
[2018-01-23] MEDS: Saccharomyces boulardii 250 MG CAP PO SCH (09:30)
[2018-01-23] MEDS: Ondansetron PF 4 MG/2 ML Vial IVP PRN (11:54)
--- NOTE | 2018-01-23 13:12 | PRG ---
DATE OF SERVICE: 01/23/2018 SUBJECTIVE: The patient reports she is feeling better. She is having less pain. She still only foster erating liquids. She has not had any bowel movements. OBJECTIVE: VITAL SIGNS: Temperature 97.6, pulse 59, respiratory rate 16, blood pressure 116/73. CHEST: Clear. CARDIOVASCULAR: Regular rate and rhythm. ABDOMEN: Soft and nontender without organomegaly or masses. LABORATORY DATA: Shows a white blood count of 15.6, hemoglobin 13.8, hematocrit 39.7. Chemistries s how glucose 111. ASSESSMENT: Crohn's ileitis - somewhat improved. RECOMMENDATIONS: 1. We would discontinue IV morphine and possibly use oral medication for pain. 2. Continue higher dose of Solu-Medrol. 3. Continue antibiotics. 4. Continue Pentasa.
[2018-01-23] MEDS: Calcium Carbonate 500 MG ChewTAB PO PRN (13:57)
--- NOTE | 2018-01-23 17:22 | PDOC.PN ---
- Subjective Encounter Start Date: 01/23/18 Encounter Start Time: 12:00 Patient seen and examined for IBD exacerbation. Intermittent Abd pain. Some Nausea. Unable to tolerate full liqd diet. No other complaints. No overnight events - Objective Resuscitation Status: Resuscitation Status FULL:Full Resuscitation MAR Reviewed: Yes Vital Signs & Weight: Vital Signs (12 hours) Temp Pulse Resp BP Pulse Ox 01/23/18 15:38 98.1 F 47 L 16 118/70 97 01/23/18 12:15 97.6 F 59 L 16 116/73 99 01/23/18 07:45 97.7 F 70 20 134/78 96 Weight Admit Weight 154 lb 5.177 oz Weight 154 lb 5.177 oz I&O: 01/22/18 01/23/18 01/24/18 06:59 06:59 06:59 Intake Total 2980 3380 Balance 2980 3380 Result Diagrams: 01/23/18 05:27 01/23/18 05:27 Phys Exam - Physical Examination Constitutional: NAD Cardiovascular: RRR, no rub Gastrointestinal: soft, positive bowel sounds gen tend - mild Musculoskeletal: no edema Neurological: moves all 4 limbs Dx/Plan - Plan DVT proph w/SCDs 1. Abdominal pain/SIRS due to Crohn's exacerbation Cont IV Cipro/Flagyl/Steroids Advance diet as tolerated AM labs Pain control 2. Dehydration with lactic acidosis. Cont current IVF 3. Chronic kidney disease stage 2. 4. Tobacco dependence. Counselled 5. Cannabis abuse. Counselled 6. Abnormal LFTs - improving Review of Systems - Review of Systems Respiratory: negative: Cough, Dry, Shortness of Breath, Hemoptysis, SOB with Excertion, Pleuritic Pain, Sputum, Wheezing Cardiovascular: negative: chest pain, palpitations, orthopnea, paroxysmal nocturnal dyspnea, edema, light headedness, other - Medications/Allergies Allergies/Adverse Reactions: Allergies Allergy/AdvReac Type Severity Reaction Status Date / Time piperacillin [From Zosyn] Allergy Verified 01/19/18 10:05 tazobactam [From Zosyn] Allergy Verified 01/19/18 10:05 Medications: Current Medications Acetaminophen (Tylenol) 650 mg PO Q4H PRN PRN Reason: Headache/Fever/Mild Pain (1-3) Last Admin: 01/19/18 20:20 Dose: 650 mg Acetaminophen/Codeine Phosphate (Tylenol #3) 1 tab PO Q4H PRN PRN Reason: Moderate Pain (4-6) Last Admin: 01/23/18 09:32 Dose: 1 tab Calcium Carbonate (Tums) 1,000 mg PO Q4H PRN PRN Reason: Heartburn or Indigestion Last Admin: 01/23/18 13:57 Dose: 1,000 mg Famotidine (Pepcid) 20 mg PO BID [facility] Last Admin: 01/23/18 09:30 Dose: 20 mg Metronidazole 500 mg/ Device 100 mls @ 100 mls/hr IVPB Q8HR [facility] Last Admin: 01/23/18 13:52 Dose: 100 mls Ciprofloxacin/Dextrose 400 mg/ (Device) 200 mls @ 200 mls/hr IVPB 0800,2000 [facility] Last Admin: 01/23/18 07:48 Dose: 200 mls Sodium Chloride (1/2 Normal Saline) 1,000 mls @ 50 mls/hr IV .Q20H [facility] Last Admin: 01/23/18 02:22 Dose: 1,000 mls Mesalamine (Pentasa) 1,000 mg PO QID [facility] Last Admin: 01/23/18 13:52 Dose: 1,000 mg Methylprednisolone Sodium Succinate (Solu-Medrol) 40 mg IVP Q8HR [facility] Last Admin: 01/23/18 13:53 Dose: 40 mg Morphine Sulfate (Morphine) 2 mg SLOW IVP Q4H PRN PRN Reason: Moderate to Severe Pain (4-10) Last Admin: 01/23/18 15:26 Dose: 2 mg Nicotine (Nicoderm Patch) 14 mg TD Q24HR PRN PRN Reason: Smoking craving Last Admin: 01/21/18 15:12 Dose: 14 mg Ondansetron HCl (Zofran Odt) 4 mg PO Q6H PRN PRN Reason: Nausea/Vomiting Last Admin: 01/19/18 22:55 Dose: 4 mg Ondansetron HCl (Zofran) 4 mg IVP Q6H PRN PRN Reason: Nausea/Vomiting Last Admin: 01/23/18 11:54 Dose: 4 mg Saccharomyces Boulardii (Florastor) 250 mg PO DAILY [facility] Last Admin: 01/23/18 09:30 Dose: 250 mg Sodium Chloride (Flush - Normal Saline) 10 ml IVF Q12HR [facility] Last Admin: 01/23/18 09:34 Dose: Not Given Sodium Chloride (Flush - Normal Saline) 10 ml IVF PRN PRN PRN Reason: Saline Flush Last Admin: 01/21/18 03:24 Dose: 10 ml Zolpidem Tartrate (Ambien) 5 mg PO HSPRN PRN PRN Reason: .INSOMNIA Last Admin: 01/22/18 20:12 Dose: 5 mg
[2018-01-23] MEDS: Zolpidem Tartrate 5 MG TAB PO PRN (22:17)
[2018-01-24] MEDS: Morphine 2 MG/ML SYRINGE SLOW IVP PRN ×3 (02:51→17:44)
[2018-01-24] MEDS: metroNIDAZOLE 500 MG in Premix Bag 1 BAG IVPB SCH ×3 (05:17→21:08)
[2018-01-24] MEDS: Acetaminophen/Codeine 30-300mg Tablet PO PRN ×4 (05:17→18:54)
--- NOTE | 2018-01-24 07:42 | PRG ---
DATE OF SERVICE: 01/21/2018 SUBJECTIVE: This is a 32-year-old with history of longstanding Crohn's disease with no pre vious medical record available to read. The patient tells us that she has had Crohn's diagnosed in 2 005 and this was done in [place]. Over the last 13 years, she never took any medicines except every now and then she takes Solu-Medrol and Flagyl, etc. The patient is not taking medicines for the last several years. The patient comes with abdominal cramping, nausea, vomiting, and diarrhea. She also had a hematochezia. She had all the stool studies came back negative for any pathology. The CAT sc an does show some thickening of the ileum and the possibility of Crohn's disease. It is also possibl e the patient simply could have infectious diarrhea. She is slowly but steadily getting better. She continued to have abdominal pain, but her abdominal exam is really actually benign. OBJECTIVE: VITAL SIGNS: Afebrile, pulse is 75, blood pressure 145/80. LUNGS: Within normal limits. ABDOMEN: Soft. Abdomen is nondistended. Abdomen is minimally tender over the lower abdomen. No re bound or guarding. LABORATORY DATA: Shows WBC yesterday 7900, hemoglobin 13.6. Her liver function tests are actually n ormal except for bilirubin of 2 mg percent and dropping to 1.7 mg. CLINICAL IMPRESSION: 1. Abdominal pain, nausea, vomiting, diarrhea, and CAT scan showing thickening of the ileum, possibi lity of Crohn's disease. 2. 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 RECOMMENDATION: 1. Advance diet as tolerated. 2. Change medication to orally tomorrow and hopefully in the next 24 hours, she can be discharged.
[2018-01-24] MEDS: Saccharomyces boulardii 250 MG CAP PO SCH (08:56)
[2018-01-24] MEDS: Famotidine 20 MG TAB PO SCH ×2 (08:57→21:00)
[2018-01-24] MEDS: Sodium Chloride 0.45% 1,000 ML IV SCH ×2 (08:57→20:56)
[2018-01-24] MEDS: Ondansetron PF 4 MG/2 ML Vial IVP PRN (09:00)
--- NOTE | 2018-01-24 13:45 | PRG ---
DATE OF SERVICE: 01/24/2018 HISTORY OF PRESENT ILLNESS: This is a 32-year-old female with history of Crohn's disease s danay 2004. She also has abdominal pain, nausea, vomiting and diarrhea. The diarrhea resolved. She is a clear liquid diet and ____. She is on IV steroids and she is on Pentasa. She has not had any m ore nausea or vomiting. No diarrhea. Abdominal pain still persists, but not as bad as before. PHYSICAL EXAMINATION: GENERAL: She appears comfortable in no distress. VITAL SIGNS: Afebrile. Pulse is 50, blood pressure 111/73. CARDIOVASCULAR: First and second heart sounds normal. LUNGS: Clear to auscultation. ABDOMEN: Soft to palpate. Abdomen is nondistended. She is minimally tender on deep palpation over the right lower quadrant. She ate more than 50% of her breakfast this morning. CLINICAL IMPRESSION: Crohn ileitis versus infectious process accounting for the symptoms. She is ac tually doing better and she is tolerating diet. Continue present treatment. She is able to tolerate a regular diet without nausea, vomiting or worsening diarrhea. Hopefully, she can be discharged in the next 24-48 hours.
[2018-01-24] MEDS: Zolpidem Tartrate 5 MG TAB PO PRN (21:05)
--- NOTE | 2018-01-24 21:31 | PDOC.PN ---
- Subjective Encounter Start Date: 01/24/18 Encounter Start Time: 13:00 Patient seen and examined for IBD exacerbation. Intermittent abd pain with some nausea. No new complaints. No overnight events - Objective Resuscitation Status: Resuscitation Status FULL:Full Resuscitation Vital Signs & Weight: Vital Signs (12 hours) Temp Pulse Resp BP Pulse Ox 01/24/18 20:00 98 F 59 L 19 127/73 98 01/24/18 15:29 97.9 F 66 20 117/62 98 01/24/18 11:20 98 F 50 L 16 111/73 98 Weight Admit Weight 154 lb 5.177 oz Weight 154 lb 5.177 oz I&O: 01/23/18 01/24/18 01/25/18 06:59 06:59 06:59 Intake Total 3380 1350 3615 Balance 3380 1350 3615 Result Diagrams: 01/25/18 04:56 01/25/18 04:56 Phys Exam - Physical Examination Constitutional: NAD Respiratory: no wheezing, no rhonchi Cardiovascular: RRR, no rub Gastrointestinal: soft, non-tender, positive bowel sounds Musculoskeletal: no edema Neurological: moves all 4 limbs Dx/Plan - Plan DVT proph w/SCDs 1. Abdominal pain/SIRS due to Crohn's exacerbation Cont IV Atbx/Steroids/Pentasa Advance diet as tolerated AM labs Pain control 2. Dehydration with lactic acidosis. Cont IVF 3. Chronic kidney disease stage 2. 4. Tobacco dependence. Counselled 5. Cannabis abuse. Counselled 6. Abnormal LFTs - improving Review of Systems - Medications/Allergies Allergies/Adverse Reactions: Allergies Allergy/AdvReac Type Severity Reaction Status Date / Time piperacillin [From Zosyn] Allergy Verified 01/19/18 10:05 tazobactam [From Zosyn] Allergy Verified 01/19/18 10:05 Medications: Current Medications Acetaminophen (Tylenol) 650 mg PO Q4H PRN PRN Reason: Headache/Fever/Mild Pain (1-3) Last Admin: 01/19/18 20:20 Dose: 650 mg Acetaminophen/Codeine Phosphate (Tylenol #3) 1 tab PO Q4H PRN PRN Reason: Moderate Pain (4-6) Last Admin: 01/24/18 18:54 Dose: 1 tab Calcium Carbonate (Tums) 1,000 mg PO Q4H PRN PRN Reason: Heartburn or Indigestion Last Admin: 01/23/18 13:57 Dose: 1,000 mg Famotidine (Pepcid) 20 mg PO BID [facility] Last Admin: 01/24/18 21:00 Dose: 20 mg Metronidazole 500 mg/ Device 100 mls @ 100 mls/hr IVPB Q8HR [facility] Last Admin: 01/24/18 21:08 Dose: 100 mls Ciprofloxacin/Dextrose 400 mg/ (Device) 200 mls @ 200 mls/hr IVPB 0800,2000 [facility] Last Admin: 01/24/18 20:57 Dose: 200 mls Sodium Chloride (1/2 Normal Saline) 1,000 mls @ 50 mls/hr IV .Q20H [facility] Last Admin: 01/24/18 20:56 Dose: 1,000 mls Mesalamine (Pentasa) 1,000 mg PO QID [facility] Last Admin: 01/24/18 21:00 Dose: 1,000 mg Methylprednisolone Sodium Succinate (Solu-Medrol) 40 mg IVP Q8HR [facility] Last Admin: 01/24/18 21:01 Dose: 40 mg Morphine Sulfate (Morphine) 2 mg SLOW IVP Q4H PRN PRN Reason: Moderate to Severe Pain (4-10) Last Admin: 01/24/18 17:44 Dose: 2 mg Nicotine (Nicoderm Patch) 14 mg TD Q24HR PRN PRN Reason: Smoking craving Last Admin: 01/21/18 15:12 Dose: 14 mg Ondansetron HCl (Zofran Odt) 4 mg PO Q6H PRN PRN Reason: Nausea/Vomiting Last Admin: 01/19/18 22:55 Dose: 4 mg Ondansetron HCl (Zofran) 4 mg IVP Q6H PRN PRN Reason: Nausea/Vomiting Last Admin: 01/24/18 09:00 Dose: 4 mg Saccharomyces Boulardii (Florastor) 250 mg PO DAILY [facility] Last Admin: 01/24/18 08:56 Dose: 250 mg Sodium Chloride (Flush - Normal Saline) 10 ml IVF Q12HR [facility] Last Admin: 01/24/18 21:08 Dose: 10 ml Sodium Chloride (Flush - Normal Saline) 10 ml IVF PRN PRN PRN Reason: Saline Flush Last Admin: 01/21/18 03:24 Dose: 10 ml Zolpidem Tartrate (Ambien) 5 mg PO HSPRN PRN PRN Reason: .INSOMNIA Last Admin: 01/24/18 21:05 Dose: 5 mg
[2018-01-25] MEDS: Morphine 2 MG/ML SYRINGE SLOW IVP PRN ×5 (00:46→20:42)
[2018-01-25] MEDS: Acetaminophen/Codeine 30-300mg Tablet PO PRN ×4 (03:00→22:11)
[2018-01-25 05:28] LABS: #Lymphocytes 1.3 thou/uL (1.20-3.40); #Monocytes 0.9 thou/uL (0.11-0.59); %Basophils 0.2 % (0.0-1.0); %Eosinophils 0.1 % (0.0-10.0); %Lymphocytes 8.1 % (21.0-51.0); %Monocytes 5.7 % (0.0-10.0); %Neutrophils 85.9 % (42.0-75.0); Hemoglobin 14.6 g/dL (12.0-16.0); Mean Corpuscular Hemoglobin 30.9 pg (27.0-31.0); Mean Corpuscular Volume 90.8 fL (78.0-98.0); Mean Platelet Volume 8.1 fL (7.4-10.4); Platelet Count 315 thou/uL (130-400); RBC Distribution Width 12.8 % (11.5-14.5); Red Blood Cell (RBC) Count 4.72 mill/uL (4.20-5.40); White Blood Cell (WBC) Count 16.2 thou/uL (4.8-10.8)
[2018-01-25] MEDS: Ondansetron PF 4 MG/2 ML Vial IVP PRN (05:50)
[2018-01-25] MEDS: metroNIDAZOLE 500 MG in Premix Bag 1 BAG IVPB SCH ×3 (05:55→22:13)
[2018-01-25 05:56] LABS: ALT (SGPT) 14 U/L (8-55); AST (SGOT) 10 U/L (5-34); Albumin 4.1 g/dL (3.5-5.0); Alkaline Phosphatase 55 U/L (40-150); Anion Gap 12 mmol/L (10-20); BUN (Urea Nitrogen) 14 mg/dL (7.0-18.7); Bilirubin, Total 1.4 mg/dL (0.2-1.2); Calc. Creatinine Clearance 113 mL/min (70-130); Calcium 9.2 mg/dL (7.8-10.44); Carbon Dioxide 24 mmol/L (22-29); Chloride 108 mmol/L (98-107); Estimated GFR-MDRD 85; Globulin 2.2 g/dL (2.4-3.5); Glucose 102 mg/dL (70-105); Magnesium 2.4 mg/dL (1.6-2.6); Potassium 3.6 mmol/L (3.5-5.1); Protein, Total 6.3 g/dL (6.0-8.3); Sodium 140 mmol/L (136-145)
[2018-01-25] MEDS: Saccharomyces boulardii 250 MG CAP PO SCH (08:24)
[2018-01-25] MEDS: Famotidine 20 MG TAB PO SCH ×2 (08:24→20:44)
[2018-01-25] MEDS: Dicyclomine 10 MG CAP PO SCH ×3 (12:48→20:44)
[2018-01-25] MEDS: Sodium Chloride 0.45% 1,000 ML IV SCH (22:21)
--- NOTE | 2018-01-25 22:48 | PDOC.PN ---
- Subjective Encounter Start Date: 01/25/18 Encounter Start Time: 12:00 Patient seen and examined for IBD flare. Intractable abd pain started after eating. No new complaints. No overnight events - Objective Resuscitation Status: Resuscitation Status FULL:Full Resuscitation MAR Reviewed: Yes Vital Signs & Weight: Vital Signs (12 hours) Temp Pulse Resp BP Pulse Ox 01/25/18 21:11 97.7 F 53 L 18 116/62 100 01/25/18 15:43 98.1 F 47 L 16 110/68 97 01/25/18 12:00 98.4 F 82 16 158/88 H 100 Weight Admit Weight 154 lb 5.177 oz Weight 154 lb 5.177 oz I&O: 01/24/18 01/25/18 01/26/18 06:59 06:59 06:59 Intake Total 1350 4810 2150 Balance 1350 4810 2150 Result Diagrams: 01/25/18 04:56 01/25/18 04:56 Phys Exam - Physical Examination Constitutional: NAD Respiratory: no wheezing, no rhonchi Cardiovascular: RRR, no rub Gastrointestinal: soft, non-tender, positive bowel sounds Musculoskeletal: no edema Neurological: moves all 4 limbs Dx/Plan - Plan DVT proph w/SCDs 1. Abdominal pain/SIRS due to Crohn's exacerbation Cont Pentasa Change to full liqd Add Bentyl DC Atbx Change Atbx to PO AM labs Pain control 2. Dehydration with lactic acidosis. DC IVF 3. Chronic kidney disease stage 2. 4. Tobacco dependence. Counselled 5. Cannabis abuse. Counselled 6. Abnormal LFTs - improving 7. Leucocytosis due to steroids Review of Systems - Review of Systems Respiratory: negative: Cough, Dry, Shortness of Breath, Hemoptysis, SOB with Excertion, Pleuritic Pain, Sputum, Wheezing Cardiovascular: negative: chest pain, palpitations, orthopnea, paroxysmal nocturnal dyspnea, edema, light headedness, other - Medications/Allergies Allergies/Adverse Reactions: Allergies Allergy/AdvReac Type Severity Reaction Status Date / Time piperacillin [From Zosyn] Allergy Verified 01/19/18 10:05 tazobactam [From Zosyn] Allergy Verified 01/19/18 10:05 Medications: Current Medications Acetaminophen (Tylenol) 650 mg PO Q4H PRN PRN Reason: Headache/Fever/Mild Pain (1-3) Last Admin: 01/19/18 20:20 Dose: 650 mg Acetaminophen/Codeine Phosphate (Tylenol #3) 1 tab PO Q4H PRN PRN Reason: Moderate Pain (4-6) Last Admin: 01/25/18 22:11 Dose: 1 tab Calcium Carbonate (Tums) 1,000 mg PO Q4H PRN PRN Reason: Heartburn or Indigestion Last Admin: 01/23/18 13:57 Dose: 1,000 mg Dicyclomine HCl (Bentyl) 10 mg PO QID [facility] Last Admin: 01/25/18 20:44 Dose: 10 mg Famotidine (Pepcid) 20 mg PO BID [facility] Last Admin: 01/25/18 20:44 Dose: 20 mg Sodium Chloride (1/2 Normal Saline) 1,000 mls @ 50 mls/hr IV .Q20H [facility] Last Admin: 01/25/18 22:21 Dose: Not Given Mesalamine (Pentasa) 1,000 mg PO QID [facility] Last Admin: 01/25/18 20:44 Dose: 1,000 mg Morphine Sulfate (Morphine) 2 mg SLOW IVP Q4H PRN PRN Reason: Moderate to Severe Pain (4-10) Last Admin: 01/25/18 20:42 Dose: 2 mg Nicotine (Nicoderm Patch) 14 mg TD Q24HR PRN PRN Reason: Smoking craving Last Admin: 01/21/18 15:12 Dose: 14 mg Ondansetron HCl (Zofran Odt) 4 mg PO Q6H PRN PRN Reason: Nausea/Vomiting Last Admin: 01/19/18 22:55 Dose: 4 mg Ondansetron HCl (Zofran) 4 mg IVP Q6H PRN PRN Reason: Nausea/Vomiting Last Admin: 01/25/18 05:50 Dose: 4 mg Prednisone (Prednisone) 40 mg PO [facility] Saccharomyces Boulardii (Florastor) 250 mg PO DAILY [facility] Last Admin: 01/25/18 08:24 Dose: 250 mg Sodium Chloride (Flush - Normal Saline) 10 ml IVF Q12HR [facility] Last Admin: 01/25/18 20:52 Dose: Not Given Sodium Chloride (Flush - Normal Saline) 10 ml IVF PRN PRN PRN Reason: Saline Flush Last Admin: 01/25/18 05:56 Dose: 10 ml Zolpidem Tartrate (Ambien) 5 mg PO HSPRN PRN PRN Reason: .INSOMNIA Last Admin: 01/24/18 21:05 Dose: 5 mg
[2018-01-25] MEDS: Nicotine 14 MG PATCH TD PRN (23:25)
[2018-01-25] MEDS: Zolpidem Tartrate 5 MG TAB PO PRN (23:25)
[2018-01-26] MEDS: Morphine 2 MG/ML SYRINGE SLOW IVP PRN (04:25)
--- NOTE | 2018-01-26 07:19 | PRG ---
DATE OF SERVICE: 01/25/2018 HISTORY OF PRESENT ILLNESS: This is a 32-year-old , hospitalized with abdominal pain, nause a, vomiting and diarrhea. The patient has history of Crohn's disease from 2004; however, no records could be obtained. The CAT scan did show signs of ileitis. She is on IV Solu-Medrol, Cipro, Flagyl, and Pentasa. She has been tolerating diet yesterday but today, she says she is not able to tolerate it, feeling nauseous. She has 1 stool. She used to take some pain medicine off and on. The patien t's abdominal pain is markedly improved. His abdominal exam is very benign. She is mildly tender on deep palpation. Overall, the exam is very benign but she continues to have abdominal pain. She say s she is eating solid food and also drinking a lot of liquids. PHYSICAL EXAMINATION: GENERAL: Appears comfortable. VITAL SIGNS: Stable, afebrile. CARDIOVASCULAR: First and second sounds normal. LUNGS: Clear to auscultation. ABDOMEN: Soft. Abdomen is nondistended. Abdomen is minimally tender on deep palpation. There is n o rebound or guarding. LABORATORY DATA: From today, WBC 16,200 mostly from sterile leukocytosis. Hemoglobin 14.6, hematocr it 42.9, MCV is 90.8, platelet count 315,000, polymorphs 85, lymphocytes 8, no bandemia. Chemistry p alexx is actually normal. BNP is normal. BUN is 14, potassium 3.6, magnesium is 2.4, bilirubin is 1. 4. AST and ALT normal. CLINICAL IMPRESSION: Crohn's disease, doing much better on medical therapy. Her abdomen is benign over the last couple of days. However, she is still having abdominal pain. I am not sure if she has some social issues inv olved and trying not to face it. She is agreeable to go home today on p.o. medications. RECOMMENDATIONS: 1. Discharge home on prednisone 40 once a day and taper off 5 mg every week. 2. Pentasa 500 mg p.o. 4 times a day. 3. Potassium supplement. 4. Bentyl 10 mg p.o. 3 times a day for abdominal cramping.
[2018-01-26] MEDS ORDERED: predniSONE 20 MG TAB PO SCH (08:00)
[2018-01-26] MEDS: Acetaminophen/Codeine 30-300mg Tablet PO PRN (08:19)
[2018-01-26] MEDS: Famotidine 20 MG TAB PO SCH (08:21)
[2018-01-26] MEDS: Saccharomyces boulardii 250 MG CAP PO SCH (08:21)
[2018-01-26] MEDS: Dicyclomine 10 MG CAP PO SCH ×2 (08:21→12:58)
[2018-01-26] MEDS: traMADol HCl 50 MG TAB PO PRN ×2 (10:04→15:18)
[2018-01-26] MEDS: Ondansetron ODT 4 MG TAB PO PRN (10:06)
[2018-01-26 15:40] VITALS: BP 133/61; TEMP 97.5
--- NOTE | 2018-01-26 20:47 | DIS ---
DATE OF DISCHARGE: 01/26/2018 DISCHARGE DISPOSITION: Home. FOLLOWUP: Follow up with primary care physician at [facility] in 1 week. Follow up with [facility], Dr. Munoz in 1-2 weeks. ALLERGIES: Patient is allergic to ZOSYN. DISCHARGE MEDICATIONS: 1. Bentyl as needed. 2. Pepcid 20 mg twice a day. 3. Mesalamine 1000 mg 4 times a day. 4. Prednisone 40 mg daily. The prednisone dose will be reduced by 5 mg every week. 5. Tramadol as needed. 6. Calcium with vitamin D 1 tablet daily. BRIEF HOSPITAL COURSE: The patient is a 32-year-old female with untreated Crohn's disease who presen milind to the emergency room with abdominal discomfort. Please refer to the history and physical for fu rther details. The patient was admitted to the hospital with a diagnosis of Crohn's colitis. CT scan of the abdomen and pelvis showed some inflammatory changes in the distal ileum. She was started on IV fluids with antibiotics. Stool workup was essentially negative. She was started on steroids along with mesalami ne per Gastro[facility]. She showed slow improvement. She had intermittent spasmodic pain for which Bentyl was added. The patient has been cleared by Gastroenterology for discharge. FINAL DIAGNOSES: 1. Abdominal pain secondary to Crohn's colitis. 2. Systemic inflammatory response syndrome secondary to #1. 3. Dehydration with lactic acidosis. 4. Chronic kidney disease stage 2. 5. Tobacco dependence. 6. Cannabis abuse. 7. Abnormal liver function tests, improving. Plan of care was discussed with the patient in detail. She stated understanding. Tobacco and Cannab is cessation was emphasized.
== END 2018-01-26 15:42 | disposition home or self-care (01) | DRG 386 ==
LOC: ERS 03:40 → ERHOLD 08:12 → SURG B 10:00
PROVIDERS: ADMIT Internal Medicine; ATTEND Internal Medicine
DX: K50.00 Crohn's disease of small intestine without complications (principal); R65.10 Systemic inflammatory response syndrome (SIRS) of non-infectious origin without acute organ dysfunction; E87.2 Acidosis; Z85.41 Personal history of malignant neoplasm of cervix uteri; Z88.8 Allergy status to other drugs, medicaments and biological substances; E86.0 Dehydration; N18.2 Chronic kidney disease, stage 2 (mild); F17.210 Nicotine dependence, cigarettes, uncomplicated; K52.9 Noninfective gastroenteritis and colitis, unspecified; E80.4 Gilbert syndrome
CPT/HCPCS: 36415; 74177; 80048; 80053; 81003; 83605; 83630; 83690; 83735; 84100; 85025; 87045; 87046; 87324; 87328; 87329; 87449; 87899; 90471; 90686; 90732; 96361; 96365; 96367; 96372; 96375; 99406; G0008; G0009; J0744; J1885; J2270; J2405; J2550; J2920; J7506; Q0162

== ENCOUNTER 2018-07-17 07:19 | Emergency (ER) | payer SELFPAY ==
[2018-07-17] MEDS ORDERED: Ondansetron ODT 4 MG TAB ONE (07:22)
[2018-07-17 07:53] LABS: #Basophils 0.1 thou/uL (0.0-0.2); #Eosinphils 0.1 thou/uL (0.0-0.7); #Lymphocytes 1.6 thou/uL (1.20-3.40); #Monocytes 0.3 thou/uL (0.11-0.59); #Neutrophils 6.5 thou/uL (1.40-6.50); %Basophils 0.7 % (0.0-1.0); %Eosinophils 0.9 % (0.0-10.0); %Lymphocytes 19.1 % (21.0-51.0); %Monocytes 3.8 % (0.0-10.0); %Neutrophils 75.5 % (42.0-75.0); Hemoglobin 15.3 g/dL (12.0-16.0); Mean Corpuscular HGB CONC 35.3 g/dL (32.0-36.0); Mean Corpuscular Hemoglobin 31.5 pg (27.0-31.0); Mean Corpuscular Volume 89.3 fL (78.0-98.0); Mean Platelet Volume 7.4 fL (7.4-10.4); Platelet Count 284 thou/uL (130-400); RBC Distribution Width 12.3 % (11.5-14.5); Red Blood Cell (RBC) Count 4.84 mill/uL (4.20-5.40); White Blood Cell (WBC) Count 8.6 thou/uL (4.8-10.8)
[2018-07-17 08:57] LABS: ALT (SGPT) 20 U/L (8-55); AST (SGOT) 18 U/L (5-34); Alkaline Phosphatase 69 U/L (40-150); Anion Gap 13 mmol/L (10-20); BUN (Urea Nitrogen) 10 mg/dL (7.0-18.7); Calc. Creatinine Clearance 0 mL/min (70-130); Calcium 10.1 mg/dL (7.8-10.44); Carbon Dioxide 29 mmol/L (22-29); Chloride 109 mmol/L (98-107); Estimated GFR-MDRD 80; Globulin 2.5 g/dL (2.4-3.5); Glucose 111 mg/dL (70-105); Potassium 3.9 mmol/L (3.5-5.1); Protein, Total 7.5 g/dL (6.0-8.3); Sodium 147 mmol/L (136-145)
[2018-07-17] MEDS ORDERED: Famotidine/PF 20 mg/2ml Vial ONE (09:19)
[2018-07-17] MEDS ORDERED: Acetaminophen 500 MG TAB ONE (09:21)
[2018-07-17] MEDS ORDERED: Metoclopramide HCl 10 MG/2 ML VIAL ONE (09:41)
[2018-07-17 09:57] LABS: Bilirubin Negative (Negative); Blood, Urine Negative (Negative); Clarity CLOUDY (Clear); Glucose, Urine (Dipstick) Negative (Negative); Leukocyte Negative (Negative); Nitrite Negative (Negative); Protein, Urine (Dipstick) 100 mg/dL (Neg-Trace); Specific Gravity, Urine 1.017 (1.002-1.036); Urobilinogen 0.2 mg/dL (0.2-1.0); pH, Urine 8.5 (5.0-9.0)
[2018-07-17 10:00] LABS: Bacteria/HPF None Seen HPF (None Seen); Hyaline Casts/LPF 0-3 HYALINE CAST LPF (0-3 Hyaline); Pathc Cast-AUWi Flag 0.27 (0-2.49); RBC/HPF 0-3 HPF (0-3); Squamous Epithelial 0-3 HPF (0-3); WBC/HPF None Seen HPF (0-3)
== END 2018-07-17 10:48 | disposition home or self-care (01) ==
LOC: ERS 07:19
DX: R11.2 Nausea with vomiting, unspecified (principal); R10.9 Unspecified abdominal pain; F17.210 Nicotine dependence, cigarettes, uncomplicated
CPT/HCPCS: 36415; 80053; 81003; 81015; 83690; 85025; 96365; 96375; J2765; Q0162; S0028